=== PATIENT | female | born 2000 | race Two or more races ===

== ENCOUNTER 2025-01-02 12:06 | Outpatient (REF) | payer MEDICAID, SELFPAY ==
--- OUTSIDE RECORDS SUMMARY | 2025-01-02 12:41 | XMS_ITS | Encounter Summary ---
Author Organization [employer] Address [address] [facility] 7t [place] [address] Care Team Providers Care Aluminum Container Tester Name Role Phone Shahrzad Cortez COMPRESSOR REPAIRER Primary Care Provider [phone] Reason for Visit * Reason Onset Date Comments appt rs 07/14/2024 Encounter Details Date Type Department Care Team (Late st Contact Info) Description 07/14/2024 Telephone [facility] [address] [place], [place] [phone] Juan Rodriguez, DDS [address] [place] [address] appt rs Social History Tobacco Use Types Packs/Day Years Used Date Smoking Tobacco: Never Smokeless Tobacco: Never Alcohol Use Standard Drinks/Week Comments Never 0 (1 standard drink = 0.6 oz pur e alcohol) Comments Unknown Sex and Gender Information Value Date Recorded Sex Assigned at Female 05/27/2024 9:40 AM EDT Legal Sex Female 9:38 AM EDT Gender Identity Female 05/27/2024 9:40 AM EDT Sexual Orientation Don't know 05/27/2024 9: 43 AM EDT documented as of this encounter Miscellaneous Notes * Telephone Encounter - Susana West - 07/14/2024 1:42 PM EDT Patient reached out to medical PAR concerning a cancelled appt message for 07/15. They would like acall back to rs appt * Telephone Encounter - Nela Abbasi - 07/14/2024 1:31 PM EDT Patient asking to re send ibrofpen for pains since we cancel her extraction that will help her dealwith the pain .until we can see her documented in this encounter Plan of Treatment Upcoming Encounters Date Type Department Care Team (Late st Contact Info) Description 04/01/2025 9:15 AM EDT Office Visit [facility] MED[facility]INE [address] [place] [address] Shahrzad Cortez FNP [address] [place] [address] documented as of this encounter Visit Diagnoses Not on filedocumented in this encounter Care Teams Aluminum Container Tester Relationship Specialty Start Date End Date Shahrzad Cortez FNP [address] [place] [address] PCP - General Family Medicine 01/02/25 documented as of this encounter
--- OUTSIDE RECORDS SUMMARY | 2025-01-02 12:41 | XMS_ITS | Encounter Summary ---
Author Organization [employer] Address [address] [facility] 7[address] [place] [address] Care Team Providers Care Educational Diagnostician Name Role Phone Shahrzad Cortez [facility] Primary Care Provider [phone] Reason for Visit * Reason Comments follow up NEW patient Encounter Details Date Type Department Care Team ([facility] st Contact Info) Description 01/02/2025 10:30 AM EST Office Visit [facility] [address] [place], [place] [phone] Shahrzad Cortez [facility] [address] [place], [place] [phone] Mild intermittent asthma without complication (Primary Dx); History of anemia; Routine screening for STI (sexually transmitted infection); Difficulty sleeping Social History Tobacco Use Types Packs/Day Years Used Date Smoking Tobacco: Never Smokeless Tobacco: Never Tobacco Cessation:Counseling Given: Not Answered Alcohol Use Standard Drinks/Week Comments Never 0 (1 standard drink = 0.6 oz pur e alcohol) Depression Answer Date Recorded Patient Health Questionnaire-9 Score 8 01/02/2025 Patient Health Questionnaire-9 Score 8 01/02/2025 Last PHQ-9: Questionnaire Data Not on file 0 01/02/2025 Housing Stability Answer Date Recorded What is your housing situation today? I have hector jeong 08/25/[address] you li ve. Do you have problems with any of the following? None of the above 08/25/2024 Food Insecurity Answer Date Recorded Within the past 12 months, y ou worried that your food would run out before you got money to buy more: Never True 08/25/2024 Within the past 12 months,th e food you bought just didn't last and you didn't have enough money to get more: Never True 05/2024 Transportation Answer Date Recorded In the past 12 months, has l ack of transportation kept you from medical appts, meetings, work or from getting things needed for daily living? No 08/25/2024 Utilities Answer Date Recorded In the past 12 months, has t he electric, gas, oil or water company threatened to shut off services in your home? No 08/25/2024 Depression Answer Date Recorded Patient Health Questionnaire-2 Score 4 01/02/2025 Internet Access Answer Date Recorded Internet Access Q1 Yes 08/25/2024 Internet Access Q2 Not on file 08/25/2024 Comments Unknown Sex and Gender Information Value Date Recorded Sex Assigned at Female 05/27/2024 9:40 AM EDT Legal Sex Female 9:38 AM EDT Gender Identity Female 05/27/2024 9:40 AM EDT Sexual Orientation Don't know 05/27/2024 9: 43 AM EDT documented as of this encounter Last Filed Vital Signs Vital Sign Reading Time Taken Comments Blood Pressure 106/62 01/02/2025 11:13 AM EST Pulse 99 01/02/2025 11:13 AM EST Temperature 36.4 ??C (97.5 ??F) 01/02/2025 11:[address] Respiratory Rate 18 01/02/2025 11:13 AM EST Oxygen Saturation 99% 01/02/2025 11:13 AM EST Inhaled Oxygen Concentration - - Weight 62.6 kg (138 lb) 01/02/2025 11:13 AM EST Height 149.9 cm (4' 11 ) 01/02/2025 11:13 AM EST Body Mass Index 27.87 01/02/2025 11:13 AM EST documented in this encounter Plan of Treatment Upcoming Encounters Date Type Department Care Team (Late st Contact Info) Description 04/01/2025 9:15 AM EDT Office Visit [facility] [address] [place] [address] [facility] [address] [place] [address] Scheduled Orders Name Type Priority Associated Diagnoses Orde r Schedule Syphilis Screen Lab Routine Routine screening for STI (sexually transmitted infection) Expected: 01/02/2025, Expires: 01/02/2026 HIV-1/2 Antigen and Antibodies, Fourth Generation, with Reflexes Lab Routine Routine screening for STI (sexually transmitted infection) Expected: 01/02/2025 (Approximate), Expires: 01/02/2026 Hepatitis C Antibody with Reflex to HCV, RNA, Quantitative, Real-Time PCR Lab Routine Routine screening for STI (sexually transmitted infection) Expected: 01/02/2025, Expires: 01/02/2026 Hepatitis B surface antigen, EIA Lab Routine Routine screening for STI (sexually transmitted infection) Expected: 01/02/2025 (Approximate), Expires: 01/02/2026 Hepatitis B Core Antibody, Total Lab Routine Routine screening for STI (sexually transmitted infection) Expected: 01/02/2025 (Approximate), Expires: 01/02/2026 Hepatitis B Surface Antibody, Qualitative Lab Routine Routine screening for STI (sexually transmitted infection) Expected: 01/02/2025 (Approximate), Expires: 01/02/2026 Chlamydia/N. Gonorrhoeae RNA, TMA, Urogenitial Microbiology Routine Routine screening for STI (sexually transmitted infection) Ordered: 01/02/2025 documented as of this encounter Visit Diagnoses Diagnosis Mild intermittent asthma without complication- Primary History of anemia Personal history of diseases of blood and blood-forming organs Routine screening for STI (sexually transmitted infection) Screening examination for venereal disease Difficulty sleeping Unspecified sleep disturbance documented in this encounter Additional Health Concerns Assessment Noted Time PHQ-9 Depression Total Score: 8 01/02/20 12:07 PM EST documented as of this encounter Care Teams Educational Diagnostician Relationship Specialty Start Date End Date Shahrzad Cotrez FNP [address] [place] [id number] PCP - General Family Medicine 01/02/25 documented as of this encounter
--- OUTSIDE RECORDS SUMMARY | 2025-01-02 12:41 | XMS_ITS | Clinical Summary ---
Author Organization [employer] Address [address] [facility] 7[address] [place] [address] Care Team Providers Care Data Entry Specialist Name Role Phone Shahrzad Cortez Primary Care Provider [phone] Allergies No known active allergies Medications Sodium Fluoride (PreviDent 5000 Plus) 1.1 % cream Apply 1 mg to teeth 3 times daily. 1 g 3 4 Active albuterol 108 (90 Base) MCG/ACT inhalerIndication s:Mild intermittent asthma without complication Inhale 2 puffs every 6 (six) hours if needed for wheezing. 18 g 11 5 01/02/20 26 Active Spacer/Aero-Holdi ng Chambers (AeroChamber MV) inhalerIndication s:Mild intermittent asthma without complication Use as instructed 1 each 2 5 Active melatonin 5 MG tabletIndications :Difficulty sleeping Take 1 tablet by oral route every evening 2-3 hours before bed 90 tablet 3 5 Active Active Problems Problem Noted Date Diagnosed Date Severe dental caries 08/11/2024 Encounters Date Type Department Care Team Description 01/02/2025 10:30 AM EST Office Visit [facility] MEDICINE [address] [place] [phone] Shahrzad Cortez FNP Mild intermittent asthma without complication (Primary Dx); History of anemia; Routine screening for STI (sexually transmitted infection); Difficulty sleeping 01/02/2025 Travel 12/22/2024 Patient Outreach [facility] [address] [place] [phone] Shahrzad Cortez FNP Pre-visit Planning ((Unable to reach for PVP screening, LVM)) 11/10/2024 Telephone [facility] [address] [place] [phone] Shahrzad Cortez FNP New pt appt 10/22/2024 9:00 AM EST Office Visit [facility] ADULT DENTAL [address] [place] [address] Jacqueline Johnson, HASEEB Dental caries (Primary Dx); Symptomatic irreversible pulpitis from Last 3 Months Social History Tobacco Use Types Packs/Day Years [...] Don't know 05/27/2024 9: 43 AM EDT Last Filed Vital Signs Vital Sign Reading [...] Mass Index 27.87 01/02/2025 11:13 AM EST Plan of Treatment Upcoming Encounters Date Type Department Care Team (Late st Contact Info) Description 04/01/2025 9:15 AM EDT Office Visit [facility] MEDICINE [address] [place], [place] [phone] [facility] [address] [place], [place] [phone] Health Maintenance Due Date Last Done Comments Dental Prophylaxis 1998 HIV Screening 1998 Family Planning (PISQ) 2013 HPV Vaccines (1 - 3-dose series) 2013 Hepatitis C Screening 2016 DTaP/Tdap/Td Vaccines (1 - Tdap) 2017 Hepatitis B Vaccines (1 of 3 - 19+ 3-dose series) 2017 Pneumococcal Vaccine: Pediatrics (0 to 5 Years) and At-Risk Patients (6 to 49) Years) (1 of 2 - PCV) 2017 Pap Smear 2019 COVID-19 Vaccine ( - 2023-2 5 season) 2024 Influenza Vaccine (#1) 2024 Dental Oral Exam 03/18/2025 09/16/2024 Dental X-Ray: Bitewings 09/17/2025 09/16/2024 Alcohol/Substance Use Screening 01/02/2026 01/02/2025 Depression Screening 01/02/2026 01/02/2025, 01/02/2025 SDOH Screening 01/02/2026 01/02/2025 Tobacco Screening 01/02/2026 01/02/2025 Dental X-Ray: Full Mouth 09/17/2027 024, 06/06/2024 Zoster Vaccines (1 of 2) 2048 RSV Patients and Patients Aged 60 years or older (1 - 1-dose 75+ series) 2073 HIB Vaccines Aged Out No longer eligi ble based on patient's age to complete this topic Hepatitis A Vaccines Aged Out No long er eligible based on patient's age to complete this topic IPV Vaccines Aged Out No longer eligi ble based on patient's age to complete this topic Meningococcal Vaccine Aged Out No joshua jerod eligible based on patient's age to complete this topic RSV under 20 months Aged Out No longe r eligible based on patient's age to complete this topic Rotavirus Vaccines Aged Out No longer eligible based on patient's age to complete this topic Procedures Procedure Name Priority Date/Time Associated Diagnosis Comments CASE PRESENTATION, DETAILED AND EXTENSIVE TREATMENT PLANNING Routine 10/22/2024 9:00 AM EST Dental caries 10 MIFF(V)LL(V) RESIN-BASED COMPOSITE - 4 OR MORE SURFACES (ANTERIOR) Routine 10/22/2024 9:00 AM EST Dental caries 12 ENDODONTIC THERAPY, PREMOLAR TOOTH Routine 10/22/2024 9:00 AM EST Dental caries INTRAORAL - COMPLETE SERIES OF RADIOGRAPHIC IMAGES Routine 09/16/2024 2:00 PM EDT Encounter for dental examination Dental caries Dental calculus Severe dental caries COMPREHENSIVE ORAL EVALUATION - NEW OR ESTABLISHED PATIENT Routine 09/16/2024 2:00 PM EDT Encounter for dental examination Dental caries Dental calculus Severe dental caries from Last 3 Months or Most Recently Relevant to Health Maintenance [place] [place] [address] [employer] ST[place] ADULT Care Teams Data Entry Specialist Relationship Specialty Start Date End Date Shahrzad Cortez FNP [address] [place] [address] PCP - General Family Medicine 01/02/25
--- OUTSIDE RECORDS SUMMARY | 2025-01-02 12:42 | XMS_ITS | Encounter Summary ---
Author Organization [employer] Address [address] [facility] 7t [place] [address] Care Team Providers Care Director Communications Name Role Phone Shahrzad Cortez [facility] Primary Care Provider [phone] Encounter Details Date Type Department Care Team (Latest Contact Info) Description 01/02/2025 Travel Social History Tobacco Use Types Packs/Day Years [...] AM EDT documented as of this encounter Plan of Treatment Upcoming Encounters Date Type Department Care Team (Late st Contact Info) Description 04/01/2025 9:15 AM EDT Office Visit [facility] MEDICINE [address] [place] [address] Shahrzad Cortez FNP [address] [place] [address] documented as of this encounter Visit Diagnoses Not on filedocumented in this encounter Additional Health Concerns Assessment Noted Time PHQ-9 Depression Total Score: 8 01/02/20 25 12:07 PM EST documented as of this encounter Care Teams Director Communications Relationship Specialty Start Date End Date Shahrzad Cortez FNP [address] [place] [address] PCP - General Family Medicine 01/02/25 documented as of this encounter
--- OUTSIDE RECORDS SUMMARY | 2025-01-02 12:42 | XMS_ITS | Encounter Summary ---
Author Organization [employer] Address [address] [facility] [address] [place] [address] Care Team Providers Care Belt Cutter Name Role Phone Unavailable Primary Care Provider Unavailabl e Reason for Visit * Reason Comments Pre-visit Planning (Unable to reach for PVP screening, LVM) Encounter Details Date Type Department Care Team ([facility] st Contact Info) Description 12/22/2024 Patient Outreach [facility] MEDICINE [address] [place], [place] [phone] [facility] [address] [place], [place] [phone] Pre-visit Planning ((Unable to reach for PVP screening, LVM)) Social History Tobacco Use Types Packs/Day Years Used Date Smoking Tobacco: Never Smokeless Tobacco: Never Alcohol Use Standard Drinks/Week Comments Never 0 (1 standard drink = 0.6 oz pur e alcohol) Housing Stability Answer Date Recorded What is [...] off services in your home? No 08/25/2024 Internet Access Answer Date Recorded Internet Access Q1 Yes 08/25/2024 Internet Access Q2 Not on file 08/25/2024 Comments Unknown Sex and Gender Information Value Date Recorded Sex Assigned at Female 05/27/2024 9:40 AM EDT Legal Sex Female 9:38 AM EDT Gender Identity Female 05/27/2024 9:40 AM EDT Sexual Orientation Don't know 05/27/2024 9: 43 AM EDT documented as of this encounter Progress Notes * Rita Ang - 12/22/2024 9:45 AM EST CC Rita placed outbound call to patient to complete pre-visit planning. No answer at this time. Patient name and were not confirmed. CC left voicemail requesting return call. Direct contact information provided. documented in this encounter Plan of Treatment Upcoming Encounters Date Type Department Care Team (Late st Contact Info) Description 04/01/2025 9:15 AM EDT Office Visit [facility] MEDICINE [address] [place] [address] [facility] [address] [place] [address] documented as of this encounter Visit Diagnoses Not on filedocumented in this encounter
[2025-01-02 16:20] LABS: CT PCR NOT DETECTED (Not Detect.); NG PCR NOT DETECTED (Not Detect.)
[2025-01-03 03:31] LABS: Syphilis Screen Nonreactive (Nonreactive)
[2025-01-03 03:48] LABS: HBS Num1 1.52 mIU/mL (0-7.99); HBc Num1 0.09 S/CO (0.00-0.79); HBsAGNum1 0.26 S/CO (0.00-0.99); HIV AB/AG Nonreactive (Nonreactive); HIV Num 1 0.06 S/CO (0.00-0.99); Hepatitis B Core Antibody Nonreactive (Nonreactive); Hepatitis B Surface Antigen Negative (Negative); ~HepC Num1 0.07 S/CO (0.00-0.79); ~Hepatitis B Surface Antibody NONREACTIVE (Nonreactive); ~Hepatitis C Antibody Nonreactive (Nonreactive)
== END 2025-01-02 12:07 | disposition home or self-care (01) ==
LOC: HO.HHCL 12:06
PROVIDERS: Visit Provider Registered Nurse
DX: Z11.3 Encounter for screening for infections with a predominantly sexual mode of transmission (principal)
CPT/HCPCS: 86704; 86706; 86780; 86803; 87340; 87389; 87491; 87591